=== PATIENT | male | born 1950 | race Caucasian/White ===

== ENCOUNTER → 2016-09-26 | Outpatient (CLI) | payer OTHER ==
--- NOTE | 2016-09-26 10:51 | US ---
Sonography of the Abdominal Aorta Clinical History: 66-year-old male presenting for abdominal aortic aneurysm screening. Technique: A curvilinear 5 MHz transducer was used to sonographically evaluate the abdominal aorta an d aortoiliac bifurcation, with color and spectral Doppler also used. Comparison Study: None. Findings: The proximal abdominal aorta measures 2.4 x 2.4 cm; the midabdominal aorta measures 2.0 x 2 .1 cm; the distal abdominal aorta measures 1.7 x 2.0 cm. There is some scattered echogenic atheroscle rotic plaque observed. The proximal right common iliac artery measures 1.3 x 1.0 cm, and the proximal left common iliac artery measures 1.1 x 1.1 cm. The peak systolic velocity in the distal abdominal a frankie is 78 cm/s. Impression: Mild atherosclerotic features, with no sonographic evidence of an aneurysm.
== END ==
LOC: FIMAGING 09:39
PROVIDERS: ATTEND Family Medicine
DX: Z13.6 Encounter for screening for cardiovascular disorders (principal); M79.671 Pain in right foot; M85.80 Other specified disorders of bone density and structure, unspecified site

== ENCOUNTER → 2016-11-07 | Outpatient (CLI) | payer OTHER | LOC: FIMAGING 13:22 | PROVIDERS: ATTEND Family Medicine | DX: Z13.820 Encounter for screening for osteoporosis (principal); M85.80 Other specified disorders of bone density and structure, unspecified site ==